=== PATIENT | female | born 1995 | race Caucasian/White ===

== ENCOUNTER → 2017-01-20 | Outpatient (CLI) | payer BC ==
[2015-02-06 14:40] VITALS: BP 107/57
--- NOTE | 2017-01-20 12:56 | RAD ---
Ultrasound soft tissues back nonvascular History: Palpable lump noticed in the posterior back on the left Sonographic examination of the palpable area was performed and multiple static images were obtained. There is no focal abnormality seen. There is no fluid collection. The palpable area appears to be normal musculature. Impression: No suspicious findings. Clinical correlation is suggested.
== END | disposition home or self-care (01) ==
LOC: US 08:33
PROVIDERS: ATTEND Nurse Practitioner Family
DX: D48.1 Neoplasm of uncertain behavior of connective and other soft tissue (principal); R22.1 Localized swelling, mass and lump, neck
CPT/HCPCS: 76536

== ENCOUNTER → 2017-02-01 | Outpatient (CLI) | payer BC ==
[2015-02-06 14:40] VITALS: BP 107/57
[~2017-02-01] MED LIST: IOHEXOL 300 MG/ML 75 ML VIAL. IV ONE
--- NOTE | 2017-02-01 11:03 | RAD ---
Indication: Bilateral lipomas in the lower back. Axial imaging through the abdomen and pelvis was performed after the administration of intravenous contrast. Areas of palpable abnormality were marked with BB markers. The lung bases are clear. The liver is unremarkable. The gallbladder is surgically absent. The pancreas and spleen are unremarkable. No adrenal mass is identified. The kidneys are unremarkable. The aorta is nonaneurysmal. The small and large bowel loops are normal caliber. There is no ascites. The uterus contains an IUD. The bladder is decompressed. There is a cyst in the left adnexa with a septation measuring 3.8 cm consistent with an ovarian cyst. Markers were placed in the right and left paraspinous locations of the lower back. No underlying mass lesion is seen. Only subcutaneous fat is identified at this location. No fluid collections are seen. Impression: 1. Septated left ovarian cyst. 2. No abnormality is identified to account for the palpable abnormalities in the lower back. These could represent lipomas or fatty tissue. PQRS Compliance Statement: One or more of the following individualized dose reduction techniques were utilized for this examination: 1. Automated exposure control 2. Adjustment of the mA and/or kV according to patient size 3. Use of iterative reconstruction technique
== END | disposition home or self-care (01) ==
LOC: CT 08:44
PROVIDERS: ATTEND Nurse Practitioner Family
DX: N83.292 Other ovarian cyst, left side (principal); Z90.49 Acquired absence of other specified parts of digestive tract
CPT/HCPCS: 74177; Q9967

== ENCOUNTER → 2017-02-23 | Outpatient (CLI) | payer BC ==
[2015-02-06 14:40] VITALS: BP 107/57
--- NOTE | 2017-02-23 14:21 | RAD ---
Ultrasound pelvis Indication: Evaluation of left adnexal cyst. Technique: Grayscale, color Doppler and spectral waveform images of the pelvis obtained. Comparison: CT from 02/01/2017. Findings: The uterus measures 10.3 x 4.0 x 6.2 cm (longitudinal, AP, transverse). IUD noted in place. Cervix within normal limits. The left ovary measures 3.3 x 2.1 x 2.5 cm with anechoic well-circumscribed cyst measuring 1.2 x 1.5 x 1.8 cm, previously measuring 3.1 x [address] from 2016. Evidence of blood flow in the left ovary. The right ovary measures 2.1 x 2.5 x 2.3 cm and demonstrates evidence of blood flow. No free pelvic fluid. Impression: Interval decrease in the size of left adnexal cyst when compared to previous CT from 2016. Findings suggests resolved physiologic cyst.
== END | disposition home or self-care (01) ==
LOC: US 12:43
PROVIDERS: ATTEND Nurse Practitioner Family
DX: N83.292 Other ovarian cyst, left side (principal)
CPT/HCPCS: 76830; 76856

== ENCOUNTER 2017-12-06 12:58 | Emergency (ER) | payer BC ==
[~2017-12-06] VITALS: Ht 154.9 cm; Wt 63.5 kg
[2017-12-06] MEDS ORDERED: ONDANSETRON PF 4 MG/2 ML VIAL. IV ONE (14:00)
[2017-12-06] MEDS ORDERED: KETOROLAC 30 MG/ML VIAL. IV ONE (14:00)
[2017-12-06 14:24] LABS: BASO % 0 % (0-3); EOS # 0.1 x10^3/uL (0.0-0.7); EOS % 1 % (0-3); HEMATOCRIT 42.4 % (36.0-47.0); HEMOGLOBIN 14.5 g/dL (12.0-15.5); LYMPH # 1.9 x10^3/uL (1.0-4.8); LYMPH % 18 % (24-48); MEAN CORPUSCULAR HEMOGLOBIN 30 pg (25-35); MEAN CORPUSCULAR HGB CONC 34 g/dL (31-37); MEAN CORPUSCULAR VOLUME 87 fL (79-100); MONO # 0.5 x10^3/uL (0.0-1.1); MONO % 5 % (0-9); NEUT # 8.4 x10^3uL (1.8-7.7); NEUT % 77 % (31-73); PLATELET COUNT 265 x10^3/uL (140-400); RED CELL DISTRIBUTION WIDTH 13.1 % (11.5-14.5)
--- NOTE | 2017-12-06 14:40 | RAD ---
Pelvic ultrasound, 12/06/2017: HISTORY: Pelvic pain Transabdominal scans were obtained. The uterus measures 9 x 5 x 5 cm. An IUD is present in the central uterine cavity. The central uterine echo complex is otherwise unremarkable. No uterine abnormality is seen. The ovaries are within normal limits in size. A 2 cm simple cyst is present in the left ovary. There is blood flow in both ovaries. The adnexal regions are otherwise unremarkable. A small amount of free fluid is noted in the cul-de-sac. This amount of fluid can be on a physiologic basis. IMPRESSION: 1. An IUD is in satisfactory position. 2. Small left ovarian cyst. 3. Small amount of free fluid in the pelvis. Electronically signed by: Criilo Dixon MD (12/06/2017 2:37 PM) [facility]
[2017-12-06 14:43] LABS: CALCIUM 8.9 mg/dL (8.5-10.1); CREATININE 0.9 mg/dL (0.6-1.0); POTASSIUM 3.8 mmol/L (3.5-5.1)
[2017-12-06 14:59] LABS: BILIRUBIN,URINE NEG (NEG); CLARITY,URINE CLEAR; COLOR,URINE YELLOW; GLUCOSE,URINE NEG (NEG)
[2017-12-06 15:00] LABS: BACTERIA,URINE MOD /HPF (0-FEW); NITRITE,URINE NEG (NEG); RBC,URINE 0 /HPF (0-2); SQUAMOUS EPITHELIAL CELL,UR FEW /LPF; U PREG PATIENT NEGATIVE (NEG); UROBILINOGEN,URINE 0.2 mg/dL (0.2 mg/dL)
[2017-12-06] MEDS ORDERED: IOHEXOL 300 MG/ML 75 ML VIAL. IV ONE (15:15)
--- NOTE | 2017-12-06 15:49 | RAD ---
EXAM: CT Abdomen and Pelvis with IV contrast CLINICAL HISTORY: LOWER PELVIC PAIN, ABDOMINAL PAIN. APPRX 30ML INJECTED DUE TO MALFUNTION AND LEAKAGE OF IV. . COMPARISON: none TECHNIQUE: Helical CT of the abdomen and pelvis was performed following the administration of intravenous contrast. Oral contrast was administered. Axial, coronal and sagittal reformatted images were generated. PQRS compliance statement - One or more of the following individualized dose reduction techniques were utilized for this study: 1. Automated exposure control 2. Adjustment of the mA and/or kV according to patient size 3. Use of iterative reconstruction technique FINDINGS: Of note, although contrast was administered, there was malfunction of the autoinjector and therefore only a small amount of contrast was actually injected. Given the lack of adequate contrast, evaluation of the organs, vasculature, and lymph nodes is limited. Lower chest: Lung bases are clear. Abdomen and Pelvis: No focal liver lesion. There has been a cholecystectomy. Mild prominence of common bile duct likely physiologic in this postcholecystectomy state. Spleen is unremarkable. Adrenal glands are unremarkable. No focal renal lesion. No hydronephrosis. High density material within the renal collecting system likely excreted contrast. Moderate colonic stool content is seen. The appendix is seen on series 3 image 19, series 4 image [id number], normal in caliber. However there is mild fat infiltration in the right lower quadrant with trace fascial thickening and associated trace fluid. Small right lower quadrant mesenteric lymph nodes are seen. No abdominal or pelvic lymphadenopathy by size criteria. Trace free pelvic fluid. An IUD is seen within the uterus. Follicles are seen within both ovaries. Small fat-containing periumbilical hernia is seen. Bones: Visualized osseous structures are unremarkable. IMPRESSION: 1. The appendix is normal. 2. Mild right lower quadrant/pelvic fat infiltration is seen with small associated right lower quadrant mesenteric lymph nodes. This may represent changes from mesenteric adenitis or from other causes of infiltration/inflammatory process. 3. An IUD is seen within the uterus. 4. Small volume free pelvic fluid. 5. No evidence for bowel obstruction. 6. There has been a cholecystectomy. Electronically signed by: Alvaro Webster MD (12/06/2017 3:46 PM) [email or web address]
[2017-12-06] MEDS ORDERED: HYDR-971 PO (15:58)
[2017-12-06] MEDS ORDERED: ONDA4TAB10 SL (15:58)
--- NOTE | 2017-12-06 15:58 | PHYS DOC ---
Past History Past Medical History: Other Past Surgical History: Cholecystectomy Alcohol Use: Occasionally Drug Use: None Adult General Chief Complaint Chief Complaint: ABDOMINAL PAIN HPI HPI Patient is a 22-year-old female who presents with complaint of lower abdominal pain that started yesterday. Patient states that pain is primarily in the right lower abdomen. She indicates that she has had a little bit of nausea but no vomiting. She denies any decrease in appetite. Patient also denies any urinary discomfort or fever. Patient indicates the pain is worsened with certain movements and with palpation over the area. She states that nothing improves the pain. Review of Systems Review of Systems Constitutional: Denies fever or chills [] Respiratory: Denies cough or shortness of breath [] Cardiovascular: Denies chest pain[] GI: Complains of lower abdominal pain with nausea. No vomiting or diarrhea.[] : Denies dysuria or hematuria [] All other systems were reviewed and found to be within normal limits, except as documented in this note. Current Medications Current Medications Current Medications Medications (Trade) Dose Ordered Sig/[facility] Start Time Stop Time Status Last Admin Dose Admin Iohexol (Omnipaque 300 Mg/ml) 75 ml 1X ONCE 12/06/17 15:15 12/06/17 15:16 DC 12/06/17 15:10 75 ML Ketorolac Tromethamine (Toradol 30mg Vial) 30 mg 1X ONCE 12/06/17 14:00 12/06/17 14:06 DC 12/06/17 14:18 30 MG Ondansetron HCl (Zofran) 4 mg 1X ONCE 12/06/17 14:00 12/06/17 14:06 DC 12/06/17 14:18 4 MG Allergies Allergies Allergies Coded Allergies Type Severity Reaction Last Updated Verified codeine Allergy Intermediate Rash 02/06/15 Yes Physical Exam Physical Exam Constitutional: Well developed, well nourished, no acute distress, non-toxic appearance. [] HENT: Normocephalic, atraumatic, bilateral external ears normal, oropharynx moist, no oral exudates, nose normal. [] Eyes: PERRLA, EOMI, conjunctiva normal, no discharge. [] Neck: Normal range of motion, no tenderness, supple, no stridor. [] Cardiovascular:Heart rate regular rhythm, no murmur [] Lungs & Thorax: Bilateral breath sounds clear to auscultation [] Abdomen: Bowel sounds normal, soft, with moderate right lower quadrant tenderness/McBurney's point tenderness. [] Skin: Warm, dry, no erythema, no rash. [] Extremities: No tenderness, no cyanosis, no clubbing, ROM intact, no edema. [] Neurologic: Alert and oriented X 3, normal motor function, normal sensory function, no focal deficits noted. [] Current Patient Data Vital Signs Vital Signs Date Time Temp Pulse Resp B/P (MAP) Pulse Ox O2 Delivery O2 Flow Rate FiO2 12/06/17 13:15 97.6 77 18 100 Room Air Lab Results Laboratory Tests Test 12/06/17 13:50 12/06/17 14:30 White Blood Count 11.0 x10^3/uL (4.0-11.0) Red Blood Count 4.90 x10^6/uL (3.50-5.40) Hemoglobin 14.5 g/dL (12.0-15.5) Hematocrit 42.4 % (36.0-47.0) Mean Corpuscular Volume 87 fL (79-100) Mean Corpuscular Hemoglobin 30 pg (25-35) Mean Corpuscular Hemoglobin Concent 34 g/dL (31-37) Red Cell Distribution Width 13.1 % (11.5-14.5) Platelet Count 265 x10^3/uL (140-400) Neutrophils (%) (Auto) 77 % (31-73) H Lymphocytes (%) (Auto) 18 % (24-48) L Monocytes (%) (Auto) 5 % (0-9) Eosinophils (%) (Auto) 1 % (0-3) Basophils (%) (Auto) 0 % (0-3) Neutrophils # (Auto) 8.4 x10^3uL (1.8-7.7) H Lymphocytes # (Auto) 1.9 x10^3/uL (1.0-4.8) Monocytes # (Auto) 0.5 x10^3/uL (0.0-1.1) Eosinophils # (Auto) 0.1 x10^3/uL (0.0-0.7) Basophils # (Auto) 0.0 x10^3/uL (0.0-0.2) Sodium Level 135 mmol/L (136-145) L Potassium Level 3.8 mmol/L (3.5-5.1) Chloride Level 101 mmol/L (98-107) Carbon Dioxide Level 28 mmol/L (21-32) Anion Gap 6 (6-14) Blood Urea Nitrogen 21 mg/dL (7-20) H Creatinine 0.9 mg/dL (0.6-1.0) Estimated GFR (Cockcroft-Gault) 79.0 Glucose Level 73 mg/dL (70-99) Calcium Level 8.9 mg/dL (8.5-10.1) Urine Collection Type Unknown Urine Color Yellow Urine Clarity Clear Urine pH 6.0 Urine Specific Sun 1.010 Urine Protein Neg (NEG-TRACE) Urine Glucose (UA) Neg mg/dL (NEG) Urine Ketones (Stick) 15 mg/dL (NEG) Urine Blood Trace (NEG) Urine Nitrite Neg (NEG) Urine Bilirubin Neg (NEG) Urine Urobilinogen Dipstick 0.2 mg/dL (0.2 mg/dL) Urine Leukocyte Esterase Mod (NEG) Urine RBC 0 /HPF (0-2) Urine WBC 5-10 /HPF (0-4) Urine Squamous Epithelial Cells Few /LPF Urine Bacteria Mod /HPF (0-FEW) Urine Mucus Slight /LPF Urine Test Negative (NEG) EKG EKG [] Radiology/Procedures Radiology/Procedures [] Impressions: CT of the abdomen and pelvis demonstrates findings of inflamed mesenteric nodes in the right lower abdomen. There is nonspecific fat stranding but normal- appearing appendix. Findings consistent with mesenteric adenitis. Course & Med Decision Making Course & Med Decision Making Pertinent Labs and Imaging studies reviewed. (See chart for details) [] Dragon Disclaimer Dragon Disclaimer This electronic medical record was generated, in whole or in part, using a voice recognition dictation system. Departure Departure: Impression: Primary Impression: Mesenteric adenitis Disposition: 01 HOME, SELF-CARE Condition: STABLE Referrals: MAHESH HILL MD (PCP) Patient Instructions: Mesenteric Adenitis Scripts Ondansetron (ZOFRAN ODT) 4 Mg Tab.rapdis 1 TAB SL Q8HRS PRN for NAUSEA/VOMITING, #10 TAB Prov: GLORIA COTA Jr. DO 12/06/17 Hydrocodone Bit/Acetaminophen (NORCO 5-325 TABLET) 1 Each Tablet 1 TAB PO PRN Q6HRS PRN for PAIN, #12 TAB 0 Refills Prov: GLORIA COTA Jr. DO 12/06/17 GLORIA COTA Jr. DO Dec 06, 2017 15:58
[2017-12-06 16:12] VITALS: BP 144/90
== END 2017-12-06 16:10 | disposition home or self-care (01) ==
LOC: ER 12:58
DX: I88.0 Nonspecific mesenteric lymphadenitis (principal); Z90.49 Acquired absence of other specified parts of digestive tract; Z88.5 Allergy status to narcotic agent
CPT/HCPCS: 36415; 74177; 76856; 80048; 81001; 81025; 85025; 96374; 96375; 99285; J1885; J2405; Q9967; 87086

== ENCOUNTER 2017-12-21 12:24 | Emergency (ER) | payer BC ==
[~2017-12-21] VITALS: Ht 154.9 cm; Wt 63.5 kg
[~2017-12-21 12:24] MED LIST changes: +HYDR-971 PO; -IOHEXOL 300 MG/ML 75 ML VIAL. IV ONE; +ONDA4TAB10 SL
[2017-12-21] MEDS ORDERED: IV NORMAL SALINE 1,000ML 1,000 ML IV ONE (12:45)
[2017-12-21] MEDS ORDERED: HYDROcodone/APAP 5/325MG 1 TAB TABLET PO ONE (12:45)
--- NOTE | 2017-12-21 12:53 | PHYS DOC ---
Past History Past Medical History: Other Past Surgical History: Cholecystectomy Alcohol Use: Occasionally Drug Use: None Adult General Chief Complaint Chief Complaint: ABDOMINAL PAIN HPI HPI 22-year-old female presents with right upper quadrant pain. Patient states that this pain started suddenly and overnight last night. She tried to go back to sleep but did not sleep very well. She presents today because the pain has continued. She describes it as a deep cramping. It seemed to be worse with deep inspiration and standing up straight. The patient has chronic lower abdominal pain that she is being worked up by GI. She says that her current pain is different. She did try to take a tramadol at home which helped the pain somewhat. She had one episode of vomiting this morning due to pain. Patient already has her gallbladder out. She has no history of pancreatitis. She denies drinking alcohol 5 or 6 months. No history of kidney stones. Denies flank pain. No measured fever, but she has had intermittent chills. Review of Systems Review of Systems Constitutional: Denies fever[] Eyes: Denies change in visual acuity, redness, or eye pain [] HENT: Denies nasal congestion or sore throat [] Respiratory: Denies cough or shortness of breath [] Cardiovascular: No additional information not addressed in HPI [] GI: Nausea, vomiting, right upper quadrant.[] : Denies dysuria or hematuria [] Musculoskeletal: Denies back pain or joint pain [] Integument: Denies rash or skin lesions [] Neurologic: Denies headache, focal weakness or sensory changes [] Endocrine: Denies polyuria or polydipsia [] All other systems were reviewed and found to be within normal limits, except as documented in this note. Current Medications Current Medications Current Medications Medications (Trade) Dose Ordered Sig/[facility] Start Time Stop Time Status Last Admin Dose Admin Acetaminophen/ Hydrocodone Bitart (Lortab 5/325) 1 tab 1X ONCE 12/21/17 12:45 12/21/17 12:46 UNV Sodium Chloride 1,000 ml @ 1,000 mls/hr 1X ONCE 12/21/17 12:45 12/21/17 13:44 UNV Allergies Allergies Allergies Coded Allergies Type Severity Reaction Last Updated Verified codeine Allergy Intermediate Rash 02/06/15 Yes Physical Exam Physical Exam Constitutional: Well developed, well nourished, no acute distress, non-toxic appearance. [] HENT: Normocephalic, atraumatic, bilateral external ears normal, oropharynx moist, no oral exudates, nose normal. [] Eyes: PERRLA, EOMI, conjunctiva normal, no discharge. [] Neck: Normal range of motion, no tenderness, supple, no stridor. [] Cardiovascular:Heart rate regular rhythm, no murmur [] Lungs & Thorax: Bilateral breath sounds clear to auscultation [] Abdomen: Bowel sounds normal, soft, right upper quadrant and epigastric tenderness[] Skin: Warm, dry, no erythema, no rash. [] Back: No tenderness, no CVA tenderness. [] Extremities: No tenderness, no cyanosis, no clubbing, ROM intact, no edema. [] Neurologic: Alert and oriented X 3, normal motor function, normal sensory function, no focal deficits noted. [] Psychologic: Affect normal, judgement normal, mood normal. [] EKG EKG [] Radiology/Procedures Radiology/Procedures [] Impressions: KUB, CHEST PA LATERAL dated 12/21/2017 2:11 PM. Comparison: None. Clinical Indication: PT WAS SHIELDED,EPIGASTRIC ABDOMINAL PAIN, VOMITING X2 DAYS, LMP current PAIN Findings: PA and lateral views show normal heart and mediastinal contours. Lungs are clear without focal consolidation. Vascular interstitium within normal limits. No pleural effusion or pneumothorax. view of abdomen shows nondilated gas-filled loops of bowel throughout. No abnormal calcifications. Small amount of stool scattered throughout the colon. Clips in the right upper quadrant compatible with prior cholecystectomy. There is an intrauterine contraceptive device in the pelvis. Impression: No acute radiographic abnormality. Nonobstructive bowel gas pattern. Electronically signed by: Alan Floyd MD (12/21/2017 1:22 PM) [id number] DICTATED AND SIGNED BY: ALAN FLOYD MD DATE: 12/21/17 3212 CC: ATILIO PARADA DO; MAHESH HILL MD Course & Med Decision Making Course & Med Decision Making Pertinent Labs and Imaging studies reviewed. (See chart for details) Patient's chest x-ray KUB are unremarkable. Her labs are unremarkable. I do not have a definitive cause for the patient's epigastric pain. She does not have a gallbladder. Lipase is normal. I do not have a definitive reason for the patient 's epigastric pain. It is possible this is a viral illness. I explained that her results are reassuring. I further told if her symptoms worsen or if any new symptoms develop she should return to the emergency room. She stated verbal understanding. She is stable for discharge at this time. [] Dragon Disclaimer Dragon Disclaimer This electronic medical record was generated, in whole or in part, using a voice recognition dictation system. Departure Departure: Referrals: MAHESH HILL MD (PCP) ATILIO PARADA DO Dec 21, 2017 12:53
[2017-12-21 13:06] LABS: BASO % 0 % (0-3); EOS # 0.1 x10^3/uL (0.0-0.7); EOS % 1 % (0-3); HEMATOCRIT 41.8 % (36.0-47.0); HEMOGLOBIN 14.2 g/dL (12.0-15.5); LYMPH # 2.1 x10^3/uL (1.0-4.8); LYMPH % 20 % (24-48); MEAN CORPUSCULAR HEMOGLOBIN 29 pg (25-35); MEAN CORPUSCULAR HGB CONC 34 g/dL (31-37); MEAN CORPUSCULAR VOLUME 86 fL (79-100); MONO # 0.8 x10^3/uL (0.0-1.1); MONO % 8 % (0-9); NEUT # 7.6 x10^3uL (1.8-7.7); NEUT % 71 % (31-73); PLATELET COUNT 356 x10^3/uL (140-400); RED BLOOD COUNT 4.88 x10^6/uL (3.50-5.40); RED CELL DISTRIBUTION WIDTH 12.9 % (11.5-14.5); WHITE BLOOD COUNT 10.6 x10^3/uL (4.0-11.0)
[2017-12-21 13:22] LABS: ALBUMIN 3.3 g/dL (3.4-5.0); ALBUMIN/GLOBULIN RATIO 0.8 (1.0-1.7); CALCIUM 9.1 mg/dL (8.5-10.1); CREATININE 0.7 mg/dL (0.6-1.0); GFR 105.6; TOTAL BILIRUBIN 0.6 mg/dL (0.2-1.0); TOTAL PROTEIN 7.6 g/dL (6.4-8.2)
--- NOTE | 2017-12-21 13:25 | RAD ---
KUB, CHEST PA LATERAL dated 12/21/2017 2:11 PM. Comparison: None. Clinical Indication: PT WAS SHIELDED,EPIGASTRIC ABDOMINAL PAIN, VOMITING X2 DAYS, LMP current PAIN Findings: PA and lateral views show normal heart and mediastinal contours. Lungs are clear without focal consolidation. Vascular interstitium within normal limits. No pleural effusion or pneumothorax. view of abdomen shows nondilated gas-filled loops of bowel throughout. No abnormal calcifications. Small amount of stool scattered throughout the colon. Clips in the right upper quadrant compatible with prior cholecystectomy. There is an intrauterine contraceptive device in the pelvis. Impression: No acute radiographic abnormality. Nonobstructive bowel gas pattern. Electronically signed by: Alan Floyd MD (12/21/2017 1:22 PM) [id number]
[2017-12-21 14:33] VITALS: BP 114/69
[2017-12-21] MEDS ORDERED: HYDR-971 PO (15:00)
== END 2017-12-21 15:03 | disposition home or self-care (01) ==
LOC: ER 12:24
DX: R10.11 Right upper quadrant pain (principal); R11.2 Nausea with vomiting, unspecified; G89.29 Other chronic pain; R10.13 Epigastric pain; Z90.49 Acquired absence of other specified parts of digestive tract; Z88.5 Allergy status to narcotic agent
CPT/HCPCS: 36415; 71046; 74018; 80053; 83690; 85025; 96360; 96361; 99285-25; J7030

== ENCOUNTER → 2017-12-29 | Outpatient (CLI) | payer BC ==
[2017-12-21 14:33] VITALS: BP 114/69
[~2017-12-29] MED LIST changes: +HYDR-3165 PO; -HYDR-971 PO
--- NOTE | 2017-12-29 13:43 | RAD ---
SMALL BOWEL SERIES History: Lower abdominal pain Comparison: None. Findings: Images from small bowel examination are submitted. There is IUD. There has been cholecystectomy. Caliber of the small bowel is within normal limits. There is normal transit of the contrast through the small bowel, seen in the descending colon at 110 minutes. No significant stricture is identified. Impression: 1. No significant abnormality is identified. Electronically signed by: Ar Villa MD (12/29/2017 1:40 PM) [id number]
== END | disposition home or self-care (01) ==
LOC: RAD 08:28
PROVIDERS: ATTEND Internal Medicine Gastroenterology
DX: R10.84 Generalized abdominal pain (principal); Z90.49 Acquired absence of other specified parts of digestive tract
CPT/HCPCS: 74250

== ENCOUNTER 2018-06-24 20:34 | Emergency (ER) | payer BC ==
[~2018-06-24] VITALS: Ht 154.9 cm; Wt 68.0 kg
--- NOTE | 2018-06-24 20:36 | ED.ADGEN ---
Past History Past Medical History: Other Past Surgical History: Cholecystectomy Alcohol Use: Rarely Drug Use: None Adult General Chief Complaint Chief Complaint ".. I got this mole on my neck.. it been getting irritated.. and now it is red and swollen HPI HPI Patient is a 23 year old female who presents with above hx and complaints mole on Rt. side of neck. Pt. has developed cellulitis at site of mole. No hx . Immunosuppression. Patient normally healthy. No travel. No specific ill contacts. Normally follows Dr. Francois. Review of Systems Review of Systems Constitutional: Denies fever or chills [] Eyes: Denies change in visual acuity, redness, or eye pain [] HENT: Denies nasal congestion or sore throat [] Respiratory: Denies cough or shortness of breath [] Cardiovascular: No additional information not addressed in HPI [] GI: Denies abdominal pain, nausea, vomiting, bloody stools or diarrhea [] : Denies dysuria or hematuria [] Musculoskeletal: Denies back pain or joint pain [] Integument: Denies rash or skin lesions. Complains of cellulitis right side of neck Neurologic: Denies headache, focal weakness or sensory changes [] Endocrine: Denies polyuria or polydipsia [] All other systems were reviewed and found to be within normal limits, except as documented in this note. Family History Family History Noncontributory Current Medications Current Medications Current Medications Medications (Trade) Dose Ordered Sig/Kar Start Time Stop Time Status Last Admin Dose Admin Trimethoprim/ Sulfamethoxazole (Bactrim Ds) 1 tab STK-MED ONCE 06/24/18 21:45 06/24/18 21:46 DC Allergies Allergies Allergies Coded Allergies Type Severity Reaction Last Updated Verified codeine Allergy Intermediate Rash 02/06/15 Yes Physical Exam Physical Exam Constitutional: Well developed, well nourished, no acute distress, non-toxic appearance. [] HENT: Normocephalic, atraumatic, bilateral external ears normal, oropharynx moist, no oral exudates, nose normal. [] Eyes: PERRLA, EOMI, conjunctiva normal, no discharge. [] Neck: Normal range of motion, small area cellulitis and tenderness at mole site, supple, no stridor. [] Cardiovascular:Heart rate regular rhythm, no murmur [] Lungs & Thorax: Bilateral breath sounds clear to auscultation [] Abdomen: Bowel sounds normal, soft, no tenderness, no masses, no pulsatile masses. [] Skin: Warm, dry, no erythema, no rash. [] Back: No tenderness, no CVA tenderness. [] Extremities: No tenderness, no cyanosis, no clubbing, ROM intact, no edema. [] Neurologic: Alert and oriented X 3, normal motor function, normal sensory function, no focal deficits noted. [] Psychologic: Affect normal, judgement normal, mood normal. [] Current Patient Data Vital Signs Vital Signs Date Time Temp Pulse Resp B/P (MAP) Pulse Ox O2 Delivery O2 Flow Rate FiO2 06/24/18 20:45 97.7 98 16 100 Room Air Lab Results Laboratory Tests Test 06/24/18 20:45 06/24/18 20:58 Urine Collection Type Unknown Urine Color Yellow Urine Clarity Hazy Urine pH 6.0 Urine Specific [place] 1.025 Urine Protein Neg (NEG-TRACE) Urine Glucose (UA) Neg mg/dL (NEG) Urine Ketones (Stick) Neg mg/dL (NEG) Urine Blood Neg (NEG) Urine Nitrite Neg (NEG) Urine Bilirubin Neg (NEG) Urine Urobilinogen Dipstick 0.2 mg/dL (0.2 mg/dL) Urine Leukocyte Esterase Mod (NEG) Urine RBC 1-2 /HPF (0-2) Urine WBC >40 /HPF (0-4) Urine Squamous Epithelial Cells Many /LPF Urine Bacteria Few /HPF (0-FEW) Urine Opiates Screen Neg (NEG) Urine Methadone Screen Neg (NEG) Urine Barbiturates Neg (NEG) Urine Phencyclidine Screen Neg (NEG) Urine Amphetamine/Methamphetamine Neg (NEG) Urine Benzodiazepines Screen Neg (NEG) Urine Cocaine Screen Neg (NEG) Urine Cannabinoids Screen Neg (NEG) Urine Ethyl Alcohol Neg (NEG) POC Urine HCG, Qualitative hcg negative (Negative) EKG EKG [] Radiology/Procedures Radiology/Procedures [] Course & Med Decision Making Course & Med Decision Making Pertinent Labs and Imaging studies reviewed. (See chart for details). Apply Polysporin 4 times a day to area cellulitis. Take Bactrim DS twice a day. Follow-up primary care. Return if any concerns. Push fruit juices. Follow up urine cultures. [] Final Impression Final Impression 1. Cellulitis[] 2. UTI Dragon Disclaimer Dragon Disclaimer This electronic medical record was generated, in whole or in part, using a voice recognition dictation system. Discharge Summary Visit Information Final Diagnosis Problems Medical Problems: (1) Cellulitis Status: Acute (2) UTI (urinary tract infection) Status: Acute Brief Hospital Course Allergies Allergies Coded Allergies Type Severity Reaction Last Updated Verified codeine Allergy Intermediate Rash 02/06/15 Yes Vital Signs Vital Signs Date Time Temp Pulse Resp B/P (MAP) Pulse Ox O2 Delivery O2 Flow Rate FiO2 06/24/18 20:45 97.7 98 16 100 Room Air Lab Results Laboratory Tests Test 06/24/18 20:45 06/24/18 20:58 Urine Collection Type Unknown Urine Color Yellow Urine Clarity Hazy Urine pH 6.0 Urine Specific [place] 1.025 Urine Protein Neg (NEG-TRACE) Urine Glucose (UA) Neg mg/dL (NEG) Urine Ketones (Stick) Neg mg/dL (NEG) Urine Blood Neg (NEG) Urine Nitrite Neg (NEG) Urine Bilirubin Neg (NEG) Urine Urobilinogen Dipstick 0.2 mg/dL (0.2 mg/dL) Urine Leukocyte Esterase Mod (NEG) Urine RBC 1-2 /HPF (0-2) Urine WBC >40 /HPF (0-4) Urine Squamous Epithelial Cells Many /LPF Urine Bacteria Few /HPF (0-FEW) Urine Opiates Screen Neg (NEG) Urine Methadone Screen Neg (NEG) Urine Barbiturates Neg (NEG) Urine Phencyclidine Screen Neg (NEG) Urine Amphetamine/Methamphetamine Neg (NEG) Urine Benzodiazepines Screen Neg (NEG) Urine Cocaine Screen Neg (NEG) Urine Cannabinoids Screen Neg (NEG) Urine Ethyl Alcohol Neg (NEG) Bedside Urine HCG, Qualitative hcg negative (Negative) Brief Hospital Course Ms. Avila is a 23 old female who presented with cellulitis and UTI Discharge Information Condition at Discharge: Improved, Stable Disposition/Orders: D/C to Home Dischare Medications Current Medications Trimethoprim/ Sulfamethoxazole (Bactrim Ds) 1 tab 1X ONCE PO Last administered on 06/24/18at 21:48; Admin Dose 1 TAB; Start 06/24/18 at 22:00; Stop 06/24/18 at 22:00; Status DC Trimethoprim/ Sulfamethoxazole (Bactrim Ds) 1 tab STK-MED ONCE PO ; Start 06/24/18 at 21:45; Stop 5/11/19 at 21:46; Status DC Active Scripts Active Bactrim Ds Tablet (Sulfamethoxazole/Trimethoprim) 1 Each Tablet 1 Tab PO BID [place] 5-325 Tablet (Hydrocodone Bit/Acetaminophen) 1 Each Tablet 1 Tab PO PRN Q6HRS PRN Zofran Odt (Ondansetron) 4 Mg Tab.rapdis 1 Tab SL Q8HRS PRN [place] 5-325 Tablet (Hydrocodone Bit/Acetaminophen) 1 Each Tablet 1 Tab PO PRN Q6HRS PRN Reported No Known Medications Prior To Admisstion (Info) Each [facility] Dragon Disclaimer This chart was dictated in whole or in part using Voice Recognition software in a busy, high-work load, and often noisy Emergency Department environment. It may contain unintended and wholly unrecognized errors or omissions. DARIA BAINS MD June 24, 2018 20:36
[2018-06-24 20:45] VITALS: BP 156/83
[2018-06-24 21:15] LABS: AMPHETAMINE/METHAMPHETAMINE NEG (NEG); BARBITURATES NEG (NEG); BENZODIAZEPINES NEG (NEG); CANNABINOIDS NEG (NEG); COCAINE NEG (NEG); METHADONE NEG (NEG); OPIATES NEG (NEG); PHENCYCLIDINE NEG (NEG)
[2018-06-24 21:18] LABS: BILIRUBIN,URINE NEG (NEG); CLARITY,URINE HAZY; COLOR,URINE YELLOW; GLUCOSE,URINE NEG (NEG); NITRITE,URINE NEG (NEG); UROBILINOGEN,URINE 0.2 mg/dL (0.2 mg/dL)
[2018-06-24 21:19] LABS: BACTERIA,URINE FEW /HPF (0-FEW); SQUAMOUS EPITHELIAL CELL,UR MANY /LPF; WBC,URINE >40 /HPF (0-4)
[2018-06-24] MEDS ORDERED: SMZ/TMP 800/160MG TABLET. PO ONE ×2 (21:45→22:00)
[2018-06-24] MEDS ORDERED: SULF1TAB24 PO (21:45)
== END 2018-06-24 21:51 | disposition home or self-care (01) ==
LOC: ER 20:34
DX: L03.221 Cellulitis of neck (principal); N39.0 Urinary tract infection, site not specified; Z90.49 Acquired absence of other specified parts of digestive tract; Z88.5 Allergy status to narcotic agent
CPT/HCPCS: 36415; 80307; 81001; 81025; 87086; 99284

== ENCOUNTER 2021-06-16 19:20 | Emergency (ER) | payer BC ==
[~2021-06-16] VITALS: Ht 154.9 cm; Wt 102.1 kg
[~2021-06-16 19:20] MED LIST changes: +SULF1TAB24 PO
[2021-06-16 20:02] VITALS: BP 162/118
--- NOTE | 2021-06-16 20:16 | PHYS DOC ---
Past History Past Medical History: Endometriosis, Other Past Surgical History: Cholecystectomy, Other Alcohol Use: Rarely Drug Use: None Adult General Chief Complaint Chief Complaint: HYPERTENSION HPI HPI Patient is a 26-year-old female who presents emergency department with a chief complaint of hypertension. States she went to her primary care physician's office this morning for an earache and was diagnosed with a ear infection and started on antibiotics and was noted to be hypertensive in the office and sent to the emergency department. Denies any recent traumas, travels, fevers, chest pain, shortness of breath, abdominal pain, nausea, vomiting, dysuria, hematuria, blood in the stool. Denies any vaginal bleeding, discharge or pain. Denies any dyspnea on exertion, orthopnea, PND or edema. Denies any cardiac history. Denies any history of VTE. Denies any alcohol or drug use. Denies hypertension history. Review of Systems Review of Systems Review of systems otherwise unremarkable except noted in HPI Allergies Allergies Allergies Coded Allergies Type Severity Reaction Last Updated Verified codeine Allergy Intermediate Rash 02/06/15 Yes Physical Exam Physical Exam Constitutional: Well developed, well nourished, no acute distress, non-toxic appearance. [] HENT: Normocephalic, atraumatic, Eyes: conjunctiva normal, no discharge. [] Neck: Normal range of motion, no tenderness, supple, no stridor. [] Cardiovascular:Heart rate regular rhythm, no murmur [] Lungs & Thorax: No respiratory distress Abdomen: soft, no tenderness, no masses, no pulsatile masses. [] Skin: Warm, dry, no erythema, no rash. [] Back: no CVA tenderness. [] Extremities: No tenderness, no cyanosis, no clubbing, ROM intact, no edema. [] Neurologic: Alert and oriented X 3, normal motor function, normal sensory function, able to sit, stand and walk without issue, cranial nerves intact, no focal deficits noted. [] Psychologic: Affect normal, judgement normal, mood normal. [] Current Patient Data Vital Signs Vital Signs Date Time Temp Pulse Resp B/P (MAP) Pulse Ox O2 Delivery O2 Flow Rate FiO2 06/16/21 20:02 69 18 178/126 (143) 95 162/118 (133) EKG EKG [] Radiology/Procedures Radiology/Procedures [] Heart Score C/O Chest Pain: No Risk Factors: Risk Factors: DM, Current or recent (<one month) smoker, HTN, HLP, family history of CAD, obesity. Risk Scores: Risk Factors: DM, Current or recent (<one month) smoker, HTN, HLP, family history of CAD, obesity. Course & Med Decision Making Course & Med Decision Making Patient is a 26-year-old female who presents from her primary care physician's office after being treated for an ear infection with hypertension Vital signs notable for hypertension on arrival with improvement while in the emergency department. Physical exam noted above. EKG with a rate of 68, QRS of 86, QTc 428, no STEMI. Troponin normal. Chest x- ray nonconcerning. Hypertension improved in ED. Discussed all findings with patient. Advised to continue antibiotics for ear infection and metoprolol for blood pressure as given by primary care physician Advised to follow-up in the morning with primary care physician update on ED visit and set up a follow-up for reevaluation Gave return precautions to the ED. Patient grateful, verbalized understanding and agreed with plan of discharge [] Dragon Disclaimer Dragon Disclaimer This electronic medical record was generated, in whole or in part, using a voice recognition dictation system. Departure Departure: Impression: Primary Impression: Hypertension Additional Impression: Otitis media Disposition: HOME / SELF CARE / HOMELESS Condition: STABLE Referrals: MAHESH HILL MD (PCP) Patient Instructions: Hypertension, Otitis Media, Adult Additional Instructions: Thank for coming into the emergency department tonight and allowing us to take care of you. Please read the attached information carefully to go over things we discussed. Please continue your antibiotics as prescribed for your ear infection. Please continue your beta-joshua given to you by your primary care physician for your blood pressure as prescribed. Please be sure to drink plenty of fluids as well. Please follow-up in the morning with your primary care physician to update on your ED visit as they sent you to the emergency department and set up a follow-up appointment. Please come in with new or concerning symptoms as discussed. Problem Qualifiers JESSEE MILLIGAN MD June 16, 2021 20:16
[2021-06-16] MEDS ORDERED: KETOROLAC 30 MG/ML VIAL. IM ONE (20:30)
--- NOTE | 2021-06-16 20:47 | RAD ---
Single view chest dated 06/16/2021 8:44 PM: COMPARISON: 12/21/2017 Clinical Indication: Chest pain. Findings: Single upright portable exam of the chest was performed. Heart and mediastinal contours are stable. L ungs are clear. No consolidation or pleural effusion. No pneumothorax. IMPRESSION: No acute radiographic abnormality. Electronically signed by: Alan Floyd MD (06/16/2021 8:45 PM) SUJIT
--- NOTE | 2021-06-17 01:27 | EKG ---
[address] [address] Test Date: 2021-06-16 Test Time: 20:19:12 Pat Name: EMMANUEL MAJANO Department: Room: Gender: F [employer]: : 1995 Requested By: JESSEE MILLIGAN Order Number: [id number] Reading MD: Measurements Intervals [place] Rate: 68 P: -26 OR: 174 QRS: 2 QRSD: 86 T: 25 QT: 402 QTc: 428 Interpretive Statements SINUS RHYTHM NORMAL ECG RI6.02 No previous ECG available for comparison
== END 2021-06-16 21:13 | disposition home or self-care (01) ==
LOC: ER 19:20
DX: I10 Essential (primary) hypertension (principal); H66.90 Otitis media, unspecified, unspecified ear; Z88.5 Allergy status to narcotic agent
CPT/HCPCS: 36415; 71045; 81025; 84484; 93005; 99285